=== PATIENT | male | born 1950 | race Caucasian/White ===

== ENCOUNTER → 2017-02-13 15:12 | Outpatient (CLI) | payer MEDICARE, BC | END | disposition home or self-care (01) | LOC: D.LAB 15:12 | DX: N40.0 Benign prostatic hyperplasia without lower urinary tract symptoms (principal) ==

== ENCOUNTER → 2018-08-01 11:55 | Outpatient (CLI) | payer MEDICARE, BC | END | disposition home or self-care (01) | LOC: D.LAB 11:55 | DX: N40.0 Benign prostatic hyperplasia without lower urinary tract symptoms (principal); Z12.5 Encounter for screening for malignant neoplasm of prostate ==

== ENCOUNTER 2018-08-21 07:30 | Day surgery (SDC) | payer MEDICARE, BC ==
[2018-08-20 09:54] LABS: HEMATOCRIT 40.7 % (42.0-54.0); HEMOGLOBIN 13.9 g/dL (13.5-17.5); MCH 29.7 pg (26.0-34.0); MCHC 34.2 g/dL (31.0-37.0); RBC 4.68 10x6/uL (4.20-6.10); RDW 13.1 % (11.5-14.5); WBC 3.4 10x3/uL (4.8-10.8)
[2018-08-20 10:07] LABS: INR 1.1 (0.85-1.17); PROTIME 13.7 SECONDS (11.6-15.0)
[2018-08-20 10:10] LABS: ALBUMIN 4.1 g/dL (3.4-5.0); ALKALINE PHOSPHATASE 76 U/L (46-116); ALT (SGPT) 21 U/L (10-68); CALC OSMOLALITY 287 mosm/kg (275-300); CARBON DIOXIDE 30.8 mmol/L (21.0-32.0); CHLORIDE - SERUM 106 mmol/L (98-107); GLUCOSE 95 mg/dL (74-106); POTASSIUM - SERUM 4.2 mmol/L (3.5-5.1); SODIUM 144 mmol/L (136-145); UREA NITROGEN 16 mg/dL (7-18); eGFR NON AFRICAN AMERICAN 79 mL/min (90-120)
[~2018-08-21] VITALS: Ht 172.7 cm; Wt 70.3 kg
[2018-08-21 08:27] VITALS: BP 113/75; Ht 172.7 cm; Wt 70.3 kg
--- NOTE | 2018-08-21 11:43 | OP ---
PATIENT NAME: JAVI SHAIKH JR MEDICAL RECORD: [id number] :54 LOCATION:D[facility] ADMISSION DATE: SURGEON: LIZETT ABBASI MD DATE OF OPERATION: 08/21/2018 SURGEON: Lizett Abbasi MD ANESTHESIA: TIVA by Aroldo Villela CRNA. DIAGNOSES: Obstructive BPH, 50 gram prostate on MADELYN, PSA 1.72 on 02/13/2017. IPSS equals 32 and quality of life score is 5. FINDINGS: Bilateral lateral lobe hyperplasia without any median lobe enlargement. Single ureteral orifices bilaterally. Trabeculated bladder with cellules. No bladder tumors. PROCEDURE: Cystoscopy and UroLift implant times 4. COMPLICATIONS: None. BLOOD LOSS: None. CLINICAL HISTORY: This is a 68-year-old male, who has obstructive symptoms. He has been on tamsulosin since February 2017. His PSA at that time was 1.72. MADELYN revealed a 50-gram benign feeling prostate. Without the tamsulosin, his urine flow was very slow and he initially did have lightheadedness with the tamsulosin, but he has not had any since then. His IPSS and quality of life scores are with tamsulosin on board. He does not wish to be on medication for the rest of his life and therefore, we will proceed with UroLift implantation. He is not allergic to any medications. He was given Ancef director online marketing to the OR. DESCRIPTION OF PROCEDURE: The patient was given IV sedation. He was then placed into dorsal lithotomy position, prepped and draped. Cystoscopy was performed using the UroLift scope. Findings are as outlined above. We placed the 2 units in the anterior lateral wall near the bladder neck. These were placed about 1.5 to 2 cm distal to the bladder neck. Then, we placed 2 more units at the level of the verumontanum, again in the anterior lateral wall. Once all 4 units were implanted, he had a very nice wide open urethral channel in the anterior urethra. Minimal bleeding was encountered. The bladder was emptied through the scope and the scope was removed. The patient will be seen in followup in 1 months' time. TRANSINT:[id number] Voice Confirmation ID: [id number] DOCUMENT ID: [id number] LIZETT ABBASI MD at 1143 CC: [id number] DICTATION DATE: 08/21/18 0053 DIGITAL DATA ANALYST: 08/21/18 1141 [facility] [address] [place], [facility]
== END 2018-08-21 12:20 | disposition home or self-care (01) ==
LOC: D.OPS 07:30 → D.PAN 10:10 → D.OPS 10:45 → D.PAN 10:45 → D.OPS 12:20
PROVIDERS: Anesthesiology
DX: N40.1 Benign prostatic hyperplasia with lower urinary tract symptoms (principal); N13.8 Other obstructive and reflux uropathy

== ENCOUNTER 2018-08-21 21:15 | Emergency (ER) | payer MEDICARE, BC ==
[~2018-08-21] VITALS: Ht 172.7 cm; Wt 70.5 kg
[2018-08-21 21:28] VITALS: Ht 172.7 cm; Wt 70.5 kg
[2018-08-21 23:54] VITALS: BP 133/74
== END 2018-08-21 23:55 | disposition home or self-care (01) ==
LOC: D.ER 21:15
DX: R33.9 Retention of urine, unspecified (principal)

== ENCOUNTER 2019-05-09 05:27 | Day surgery (SDC) | payer MEDICARE, BC ==
[2019-05-07 10:14] LABS: HEMOGLOBIN 14.3 g/dL (13.5-17.5); MCH 30.2 pg (26.0-34.0); MCHC 33.3 g/dL (31.0-37.0); MCV 90.7 fL (80.0-100.0); MEAN PLATELET VOLUME 9.5 fL (7.4-10.4); RBC 4.74 10x6/uL (4.20-6.10); RDW 12.8 % (11.5-14.5); WBC 3.7 10x3/uL (4.8-10.8)
[~2019-05-09] VITALS: Ht 172.7 cm; Wt 69.4 kg
[~2019-05-09 05:27] MED LIST: FLUTICASONE PRO16 GM
[2019-05-09 06:49] VITALS: BP 108/67; Ht 172.7 cm; Wt 69.4 kg
--- NOTE | 2019-05-09 09:05 | NUR ---
0845-ABLE TO AMBULATE TO RESTROOM AND URINATE WITHOUT COMPLICATIONS. REPORTS SLIGHT TINGED BLOOD URINE WITH SMALL CLOTTING. IV CONTINUE TO BE PATENT AT KVO. FULL LIQUID TRAY TO ROOM. DENIES PAIN
--- NOTE | 2019-05-09 09:07 | NUR ---
0855-TOLERATED FULL LIQUID TRAY. DENIES PAIN. VSS. REMOVED IV FROM LEFT ARM WITH CATH INTACT,DISPOSED INTO SHARPS.COVERED SITE WITH BANDAID.
--- NOTE | 2019-05-09 09:09 | NUR ---
904- TO ROOM WITH PT CONCERNED HE WENT TO RESTROOM WITH SMALL BLOOD CLOTS AGAIN AND SLIGHTLY BLOOD TINGED URINE. ABD SOFT,NON DISTENDED. DENIES PAIN. REVIEWED POST OPERATIVE INSTRUCTIONS WITH PT AND . VERBALIZES UNDERSTANDING.
--- NOTE | 2019-05-09 09:16 | NUR ---
0915-ABLE TO URINATE ON THREE OCCASIONS PRIOR TO DISCHARGE. ESCORTED OUT VIA W/C WITH AWIAITING TO DRIVE HOME.
--- NOTE | 2019-05-09 11:35 | OP ---
PATIENT NAME: JAVI SHAIKH JR MEDICAL RECORD: [id number] :54 LOCATION:[facility] ADMISSION DATE: SURGEON: LIZETT ABBASI MD DATE OF OPERATION: 05/09/2019 SURGEON: Lizett Abbasi MD ANESTHESIA: TIVA by Greg Fam CRNA DIAGNOSIS: Obstructive BPH. MADELYN shows a 50 gram prostate. IPSS is 24. Quality of life is 4. PROCEDURE: UroLift times 5 units deployed, 4 units held. FINDINGS: Residual obstruction of the mid prostatic urethra and towards the apex of the prostate. ESTIMATED BLOOD LOSS: Minimal. CLINICAL HISTORY: This is a 69-year-old male, who had UroLift times 4 in August of 2018. After the procedure, his voiding symptoms did not improve. He still has a slow urinary flow. He still has nocturia times 3. He still has hesitancy. He had a rather long prostatic urethra and I suspect that he still has residual prostatic obstruction. My intention was to come back and insert at least 2 units into the mid prostatic urethra and more units may be required if there is obstruction elsewhere. He is not allergic to any medications. He was given Ancef video control engineer to the OR. DESCRIPTION OF PROCEDURE: The patient was given IV sedation. He was then placed into lithotomy position and prepped and draped. The UroLift scope was introduced. There are no urethral strictures. There is still residual obstruction of the apex of the prostate and at the mid prostatic level. The bladder neck is open. Going into the bladder, there are single ureteral orifices. No bladder tumors were seen. At the mid prostatic urethra at the midpoint in the anterior and posterior plane, 1 unit was placed on each side. This opened up the mid portion of the prostatic urethra. There was still residual obstruction at the apex. At the apex at the verumontanum level at the mid level of the urethra, 1 unit was placed on the left side without incident. On the right side, the device fired, but I could not get the needle to fully retract. The needle was removed within the sheath. Another unit was placed at this level on the right side and at this point, the prostatic urethra was now wide open. Irrigation fluid was left in the bladder for voiding trial. I will see the patient in followup in 3-4 weeks' time. TRANSINT:[id number] Voice Confirmation ID: [id number] DOCUMENT ID: [id number] OPERATIVE REPORT [id number] JAVI SHAIKH JR, LIZETT Álvarez MD at 1135 CC: [id number] DICTATION DATE: 05/09/19823 CUPOLA TAPPER HELPER: 05/09/1947 [facility] 05/09/19 [place] [id number] [place] [id number]
== END 2019-05-09 09:15 | disposition home or self-care (01) ==
LOC: D.OPS 05:27 → D.PAN 11:30
PROVIDERS: Anesthesiology; ATTEND Urology
DX: N40.1 Benign prostatic hyperplasia with lower urinary tract symptoms (principal)